=== PATIENT | female | born 1960 | race American Indian/Alaskan Native ===

== ENCOUNTER 2016-06-28 08:15 | Outpatient (CLI) | payer OTHER ==
--- NOTE | 2016-06-28 09:09 | Ultrasound Report ---
LEFT BREAST ULTRASOUND: 06/28/16 08:15:00 CLINICAL: Mammographic asymmetry. COMPARISON: 05/30/16 [facility] [place] FINDINGS: Ultrasound of the left breast(including all four quadrants and the retroareolar area) was performed and demonstrated normal fibroglandular and fatty structures. No mass, cyst or shadowing. IMPRESSION: Negative left breast ultrasound and probably benign mammographic asymmetry. BI-RADS 3 - - Probably Benign RECOMMENDATION: Six month followup left mammogram.
== END 2016-06-28 08:16 | disposition home or self-care (01) ==
LOC: SPVWC 08:15
PROVIDERS: ATTEND Surgery
DX: R92.8 Other abnormal and inconclusive findings on diagnostic imaging of breast (principal)